=== PATIENT | female | born 1985 | race Hispanic/Latino ===

== ENCOUNTER 2023-11-04 14:34 | Emergency (ER) | payer OTHER ==
[~2023-11-04] VITALS: Ht 175.3 cm; Wt 81.6 kg
[2023-11-04 14:46] VITALS: PULSE 75; RESP 18; TEMP 98.2; O2SAT 99
[2023-11-04] MEDS: ACETAMINOPHEN 325 MG TAB PO ONE (15:23)
[2023-11-04] MEDS ORDERED: KETOROLAC TROME10 MG PO (16:10)
== END 2023-11-04 16:15 | disposition home or self-care (01) ==
LOC: FSED 14:42
DX: S06.0X0A Concussion without loss of consciousness, initial encounter (principal); S01.81XA Laceration without foreign body of other part of head, initial encounter; M54.2 Cervicalgia; V00.131A Fall from skateboard, initial encounter; Y93.51 Activity, roller skating (inline) and skateboarding; I10 Essential (primary) hypertension
CPT/HCPCS: 70450; 72125; 99283